=== PATIENT | male | born 1985 | race Two or more races ===

== ENCOUNTER 2020-10-10 16:58 | Emergency (ER) | payer SELFPAY ==
[~2020-10-10] VITALS: Ht 180.3 cm; Wt 143.2 kg
[2020-10-10] MEDS ORDERED: FentaNYL CITRATE PF 100 MCG/2 ML VIAL IVP ONE (18:15)
[2020-10-10] MEDS ORDERED: MIDAZOLAM HCL 2 MG/2 ML VIAL IVP ONE (18:15)
[2020-10-10] MEDS ORDERED: NALOXONE HCL 1 MG/ML 2 ML SYG ONE (18:34)
[2020-10-10] MEDS ORDERED: FLUMAZENIL 0.1 MG/ML 5 ML VIAL IVP ONE (18:34)
[2020-10-10 18:44] VITALS: BP 143/84
== END 2020-10-10 19:25 | disposition home or self-care (01) ==
LOC: EMS 17:00
DX: S43.014A Anterior dislocation of right humerus, initial encounter (principal); W18.09XA Striking against other object with subsequent fall, initial encounter; Y93.89 Activity, other specified; Y92.89 Other specified places as the place of occurrence of the external cause; Y99.8 Other external cause status
CPT/HCPCS: 23650; 73030; 99285; J2250; J2310; J3010; J3490; 99152